=== PATIENT | female | born 1995 | race Caucasian/White ===

== ENCOUNTER 2019-02-28 18:49 | Observation (INO) ==
[2019-02-28] MEDS ORDERED: Acetaminophen 325 MG TABLET PO PRN (19:24)
[2019-02-28 19:40] LABS: Basophils % 0.2 %; Eosinophils # 0.2 K/mcL (0.0-0.6); Eosinophils % 1.2 %; Hematocrit 27.9 % (35.3-44.9); Hemoglobin 9.5 g/dL (11.5-15.4); Immature Granulocytes % 0.5 % (0-4); Lymphocytes # 2.3 K/mcL (0.6-4.6); Lymphocytes % 15.7 %; Mean Corpuscular HGB Conc 34.1 g/dL (31.6-35.5); Mean Corpuscular Hemoglobin 29.9 pg (28.0-33.3); Mean Corpuscular Volume 87.7 fL (83.0-100.0); Mean Platelet Volume 9.1 fL (9.4-12.4); Monocytes % 6.5 %; Neutrophils # 11.2 K/mcL (1.6-8.9); Platelet Count 386 K/mcL (140-400); Red Blood Count 3.18 M/mcL (3.82-4.97); Red Cell Distribution Width 13.2 % (11.5-14.5); Segmented Neutrophils % 75.9 %
[2019-02-28 19:43] LABS: Amphetamine Screen,Urine Negative ng/mL (Cutoff=1000); Barbiturate Screen,Urine Negative ng/mL (Cutoff=200); Benzodiazepines Screen,Urine Negative ng/mL (Cutoff=200); Cannabinoid Screen,Urine Negative ng/mL (Cutoff = 50); Cocaine Screen,Urine Negative ng/mL (Cutoff= 300); Opiate Screen,Urine Negative ng/mL (Cutoff=300); Phencyclidine Screen,Urine Negative ng/mL (Cutoff=25)
[2019-02-28 19:50] LABS: INR 0.9; Prothrombin Time 10.3 Seconds (9.4-12.1)
[2019-02-28 19:52] LABS: Activated Partial Thrombo Time 26.4 Seconds (26.0-36.0); Alanine Aminotransferase 18 Units/L (7-52); Albumin 3.4 g/dL (3.5-5.7); Albumin/Globulin Ratio 1.1 (1.1-2.2); Alkaline Phosphatase 78 Units/L (34-104); Aspartate Amino Transferase 15 Units/L (13-39); BUN/Creatinine Ratio 15 (6-26); Bilirubin,Total 0.2 mg/dL (0.3-1.0); Blood Urea Nitrogen 6 mg/dL (6-20); Calcium 8.9 mg/dL (8.6-10.3); Carbon Dioxide 21 mEq/L (23-29); Chloride 106 mEq/L (98-107); Glucose 70 mg/dL (70-105); Osmolality,Calculated 278 (280-300); Sodium 136 mEq/L (136-145); Total Protein 6.4 g/dL (6.4-8.9); eGFR For Non-African Americans > 60 (> 60)
--- NOTE | 2019-02-28 19:54 | OB/GYN Progress Note ---
Date of Encounter: 02/28/19 Time of Encounter: 19:47 - Assessment and Plan (1) Dog bite Current Visit: Yes Status: Acute Audra is a 23 y/o @ 30+0 weeks who presents to L&D s/p a dog attack, [place] by a dog, It bit her hands and chest, she also fell but states that she fell on her side, she says that she did not fall on her belly, no LOF, VB or ctxs, FHR reactive and no contractions noted on the monitor CBC, CMP, KB and coags sent, she'll be monitored for 5hrs Qualifiers: Encounter type: initial encounter Qualified Code(s): W54.0XXA - Bitten by dog, initial encounter Objective - Vital Signs Vital Signs: Intake and Output 02/28/19 02/28/19 02/28/19 07:59 15:59 23:59 Other: Weight 94.4 kg Patient Weight 02/28/19 23:59 Weight 94.4 kg - Labs Labs: Abnormal lab results WBC 14.7 K/mcL (4.3-11.1) H 02/28/19 19:10 RBC 3.18 M/mcL (3.82-4.97) L 02/28/19 19:10 Hgb 9.5 g/dL (11.5-15.4) L 02/28/19 19:10 Hct 27.9 % (35.3-44.9) L 02/28/19 19:10 MPV 9.1 fL (9.4-12.4) L 02/28/19 19:10 11.2 K/mcL (1.6-8.9) H 02/28/19 19:10
== END 2019-03-01 00:04 | disposition home or self-care (01) ==
LOC: 1NENULAB
PROVIDERS: ADMIT Student in an Organized Health Care Education/Training Program; ATTEND Student in an Organized Health Care Education/Training Program

== ENCOUNTER 2019-05-02 03:42 | Inpatient (IN) ==
[2019-05-02] MEDS ORDERED: Famotidine 20 MG/2 ML VIAL IVP PRN (03:44)
[2019-05-02] MEDS ORDERED: *HR* Nalbuphine 10 MG/ML AMPUL IVP PRN (03:44)
[2019-05-02] MEDS ORDERED: Metoclopramide 10 MG/2 ML VIAL IVP PRN (03:44)
[2019-05-02] MEDS ORDERED: miSOPROStoL 25 MCG TABLET VG PRN (03:48)
[2019-05-02 04:26] LABS: Basophils % 0.2 %; Eosinophils # 0.1 K/mcL (0.0-0.6); Eosinophils % 0.9 %; Hematocrit 30.9 % (35.3-44.9); Hemoglobin 10.4 g/dL (11.5-15.4); Immature Granulocytes % 0.3 % (0-4); Lymphocytes # 2.5 K/mcL (0.6-4.6); Lymphocytes % 19.5 %; Mean Corpuscular HGB Conc 33.7 g/dL (31.6-35.5); Mean Corpuscular Hemoglobin 28.1 pg (28.0-33.3); Mean Corpuscular Volume 83.5 fL (83.0-100.0); Mean Platelet Volume 9.7 fL (9.4-12.4); Monocytes # 0.9 K/mcL (0.0-1.3); Monocytes % 6.7 %; Neutrophils # 9.2 K/mcL (1.6-8.9); Platelet Count 361 K/mcL (140-400); Red Cell Distribution Width 13.9 % (11.5-14.5); Segmented Neutrophils % 72.4 %; White Blood Count 12.8 K/mcL (4.3-11.1)
[2019-05-02 04:32] LABS: Amphetamine Screen,Urine Negative ng/mL (Cutoff=1000); Barbiturate Screen,Urine Negative ng/mL (Cutoff=200); Benzodiazepines Screen,Urine Negative ng/mL (Cutoff=200); Cannabinoid Screen,Urine Negative ng/mL (Cutoff = 50); Cocaine Screen,Urine Negative ng/mL (Cutoff= 300); Opiate Screen,Urine Negative ng/mL (Cutoff=300); Phencyclidine Screen,Urine Negative ng/mL (Cutoff=25)
[2019-05-02] MEDS ORDERED: Calcium Gluconate 1,000 MG/10 ML VIAL IV PRN (04:33)
[2019-05-02] MEDS ORDERED: Magnesium Sulf 20 gm/SW 500mL 20 GM/500 ML IV.SOLN IVC SCH (04:45)
[2019-05-02] MEDS: Ringers Solution, Lactated 1,000 ML IVC SCH ×2 (04:55→12:24)
[2019-05-02 04:56] LABS: Alanine Aminotransferase 8 Units/L (7-52); Aspartate Amino Transferase 10 Units/L (13-39); BUN/Creatinine Ratio 15 (6-26); Blood Urea Nitrogen 9 mg/dL (6-20); Lactate Dehydrogenase 109 Units/L (140-271); Uric Acid 4.5 mg/dL (2.3-7.6); eGFR For African Americans > 60 (> 60); eGFR For Non-African Americans > 60 (> 60)
[2019-05-02] MEDS ORDERED: Epidural Premix (fent/bupiv) 110 ML EP ONE (10:39)
[2019-05-02] MEDS ORDERED: *HR* FentaNYL (PF) 100 MCG/2 ML VIAL ONE (10:40)
[2019-05-02] MEDS ORDERED: Ropivacaine/PF 0.2% 20 ML VIAL ONE ×2 (10:40→15:42)
[2019-05-02] MEDS ORDERED: Epidural Premix (fent/bupiv) 110 ML EP SCH ×2 (10:45→18:16)
[2019-05-02 12:48] LABS: Protein/Creatinine Ratio,Urine 0.69 mg/mg (0.00-0.20)
[2019-05-02] MEDS ORDERED: Oxytocin 20 units/ LR 1000 mL 20 UNIT/1,000 ML BAG IVC ONE (13:55)
[2019-05-02] MEDS ORDERED: Oxytocin 20 units/ LR 1000 mL 20 UNIT/1,000 ML BAG IVC SCH (14:00)
[2019-05-02] MEDS ORDERED: Calcium Gluconate 1,000 MG/10 ML VIAL ONE (15:16)
[2019-05-02] MEDS ORDERED: Acetaminophen 325 MG TABLET PO ONE (18:13)
[2019-05-02] MEDS ORDERED: Lidocaine/EPI 1:200k 2% PF 20 ML VIAL ONE (20:24)
[2019-05-02] MEDS ORDERED: *HR* Phenylephrine 10 MG/ML VIAL ONE (20:24)
[2019-05-02] MEDS ORDERED: *HR* Oxytocin 10 UNIT/ML VIAL IM ONE ×2 (20:25→21:48)
[2019-05-02] MEDS ORDERED: ceFAZolin 2,000 MG in 0.9 % Sodium Chloride 100 ML IVPB ONE (20:28)
[2019-05-02] MEDS ORDERED: Azithromycin 500 MG in D5% in Water 250 ML IVPB ONE (20:29)
[2019-05-02] MEDS ORDERED: *HR* Morphine Sulfate/PF 10 MG/10 ML AMPUL ONE (21:08)
[2019-05-02] MEDS ORDERED: Ondansetron 4 MG/2 ML VIAL ONE (21:16)
[2019-05-02] MEDS ORDERED: Acetaminophen IV 1,000 MG/100 ML INFUS..BTL IVPB ONE (22:09)
[2019-05-02] MEDS ORDERED: *HR* Promethazine 25 MG/ML VIAL IVP PRN (22:09)
[2019-05-02] MEDS ORDERED: *HR* HYDROmorphone (PF) 1 MG/ML SYRINGE IVP PRN (22:09)
[2019-05-03] MEDS ORDERED: Rho Immune Globulin 1,500 UNIT SYRINGE IM ONE (01:45)
[2019-05-03] MEDS ORDERED: Calcium Gluconate 1,000 MG/10 ML VIAL IV PRN (01:45)
[2019-05-03] MEDS ORDERED: Sennosides 8.6 MG TABLET PO PRN (01:45)
[2019-05-03] MEDS ORDERED: Metoclopramide 10 MG/2 ML VIAL IVP PRN (01:45)
[2019-05-03] MEDS ORDERED: Oxytocin 20 units/ LR 1000 mL 20 UNIT/1,000 ML BAG IVC SCH (01:45)
[2019-05-03] MEDS ORDERED: Magnesium Sulf 20 gm/SW 500mL 20 GM/500 ML IV.SOLN IVC SCH (01:45)
[2019-05-03] MEDS ORDERED: Ondansetron 4 MG/2 ML VIAL IVP PRN (01:45)
[2019-05-03 07:13] LABS: Basophils % 0.1 %; Eosinophils % 0.2 %; Hematocrit 30.4 % (35.3-44.9); Hemoglobin 10.1 g/dL (11.5-15.4); Immature Granulocytes % 0.5 % (0-4); Lymphocytes % 12.9 %; Mean Corpuscular HGB Conc 33.2 g/dL (31.6-35.5); Mean Corpuscular Hemoglobin 28.2 pg (28.0-33.3); Mean Corpuscular Volume 84.9 fL (83.0-100.0); Mean Platelet Volume 9.4 fL (9.4-12.4); Monocytes % 6.5 %; Neutrophils # 12.1 K/mcL (1.6-8.9); Platelet Count 348 K/mcL (140-400); Red Blood Count 3.58 M/mcL (3.82-4.97); Red Cell Distribution Width 14.2 % (11.5-14.5); Segmented Neutrophils % 79.8 %; White Blood Count 15.2 K/mcL (4.3-11.1)
[2019-05-03 07:33] LABS: Alanine Aminotransferase 7 Units/L (7-52); Aspartate Amino Transferase 13 Units/L (13-39); Lactate Dehydrogenase 209 Units/L (140-271); Magnesium 5.6 mg/dL (1.6-2.6); Uric Acid 5.5 mg/dL (2.3-7.6); eGFR For African Americans > 60 (> 60); eGFR For Non-African Americans > 60 (> 60)
[2019-05-03] MEDS: Ibuprofen 600 MG TABLET PO PRN ×2 (09:20→20:16)
[2019-05-03] MEDS: Simethicone 80 MG TAB.CHEW PO PRN (09:20)
[2019-05-03] MEDS: Prenatal Vit/FA 1 EACH TABLET PO SCH (09:21)
[2019-05-03] MEDS ORDERED: Ringers Solution, Lactated 1,000 ML ONE (12:52)
[2019-05-03] MEDS: *HR* OxyCODONE/APAP 5/325 TABLET PO PRN (20:16)
[2019-05-04] MEDS: Simethicone 80 MG TAB.CHEW PO PRN ×4 (00:25→22:58)
[2019-05-04] MEDS: *HR* OxyCODONE/APAP 5/325 TABLET PO PRN (00:25)
[2019-05-04] MEDS: Ibuprofen 600 MG TABLET PO PRN ×3 (06:47→20:12)
[2019-05-04] MEDS: Prenatal Vit/FA 1 EACH TABLET PO SCH (08:35)
[2019-05-04] MEDS: *HR* OxyCODONE/APAP 10/325 TABLET PO PRN (14:27)
[2019-05-05] MEDS: Ibuprofen 600 MG TABLET PO PRN ×4 (02:12→20:19)
[2019-05-05] MEDS: *HR* OxyCODONE/APAP 5/325 TABLET PO PRN (02:12)
[2019-05-05] MEDS: Prenatal Vit/FA 1 EACH TABLET PO SCH (08:15)
[2019-05-05] MEDS: NIFEdipine XL (24 HR) 30 MG TAB.ER.24 PO SCH (11:19)
[2019-05-05] MEDS: *HR* OxyCODONE/APAP 10/325 TABLET PO PRN ×2 (15:37→21:46)
[2019-05-05] MEDS ORDERED: NIFEdipine XL (24 HR) 30 MG TAB.ER.24 PO ONE (17:00)
[2019-05-05] MEDS: Simethicone 80 MG TAB.CHEW PO PRN (20:17)
[2019-05-06] MEDS: Ibuprofen 600 MG TABLET PO PRN ×2 (03:28→08:14)
[2019-05-06 08:07] VITALS: BP 144/96
[2019-05-06] MEDS: NIFEdipine XL (24 HR) 30 MG TAB.ER.24 PO SCH (08:15)
[2019-05-06] MEDS: Prenatal Vit/FA 1 EACH TABLET PO SCH (08:15)
== END 2019-05-06 13:37 | disposition home or self-care (01) | DRG 540 ==
LOC: 1NENULAB 03:42 → 1NENUOBS 05-03 00:07
PROVIDERS: ADMIT Obstetrics & Gynecology; ATTEND Obstetrics & Gynecology